=== PATIENT | female | born 1985 | race Caucasian/White ===

== ENCOUNTER 2021-03-02 11:11 | Inpatient (IN) ==
--- NOTE | 2021-03-01 09:34 | Anesthesiology Consultation ---
Date of Service March 01, 2021 Assessment & Plan (1) Encounter for pre-operative examination: - COVID screening: Per assessment on 03/01: Travel screen negative, no known COVID-19 positive contacts or current COVID-19 related symptoms. Patient vaccinated. Surgeon arranging preop COVID testing (02/28; DANELLE). Awaiting results. - Check test AM DOS Chart Review Chart Review: Acceptable Risk for Surgery and Patient NOT seen in Pre Admission Testing History Surgery Operation Date: 03/02/21 13:05 Proposed Procedures p L5-S1 Decompression and Fusion, Spinal Cord Monitoring - Jose Russ DO Height/Weight Height: 5 ft 9 in Weight: 138.799 kg Allergies Allergy/AdvReac Type Severity Reaction Status Date / Time amoxicillin Allergy Severe Anaphylaxis Verified 03/02/21 11:42 Penicillins Allergy Severe Anaphylaxis Verified 03/02/21 11:42 shellfish derived Allergy Severe Anaphylaxis Verified 03/02/21 11:42 Medications Home Medications Medication Instructions Recorded Confirmed Last Taken L norgest/E estradiol-E estrad 1 tab PO 01/29/21 03/02/21 03/01/21 23:00 0.15 mg-30 mcg (84)/10 mcg(7) tabs,3mos (Seasonique) acetaminophen 300 mg-codeine 30 mg 1 tab PO BID PRN 01/29/21 03/02/21 02/23/21 tablet nznztdq-dlbmmnhcitasr-atusnaxw 250 1 tab PO Q6H PRN 01/29/21 03/02/21 01/05/21 mg-250 mg-65 mg tablet (Excedrin Migraine) cholecalciferol (vitamin D3) 25 25 mcg PO 01/29/21 03/02/21 03/01/21 23:00 mcg (1,000 unit) tablet (Vitamin D3) levothyroxine 100 mcg tablet 100 mcg PO QAM 01/29/21 03/02/21 03/02/21 08:00 loratadine 10 mg tablet 10 mg PO QAM 01/29/21 03/02/21 03/01/21 magnesium 500 mg tablet 500 mg PO 01/29/21 03/02/21 03/01/21 23:00 methocarbamol 750 mg tablet 750 mg PO TID PRN 01/29/21 03/02/21 02/27/21 omega-3 fatty acids 1,000 mg PO 01/29/21 03/02/21 02/16/21 vitamin A 50,000 unit capsule 50,000 unit PO HS 01/29/21 03/02/21 03/01/21 23:00 vitamin B complex 1 cap PO HS 01/29/21 03/02/21 03/01/21 23:00 Active Medications Generic Name Dose Route Start Last Admin Trade Name Fanta PRN Reason Stop Dose Admin Acetaminophen 1,000 mg 03/02/21 06:00 03/02/21 11:45 Acetaminophen 500 Mg Tab PO 03/02/21 18:00 1,000 mg PREOP VASHTI Administration Celecoxib 200 mg 03/02/21 06:00 03/02/21 11:45 Celebrex 200 Mg Cap PO 03/02/21 18:00 200 mg PREOP VASHTI Administration Gabapentin 900 mg 03/02/21 06:00 03/02/21 11:45 Gabapentin 900 Mg Dose PO 03/02/21 18:00 900 mg PREOP VASHTI Administration Lactated Ringer's 1,000 mls @ 15 mls/hr 03/02/21 06:00 03/02/21 12:14 Lr IV 03/03/21 05:59 15 mls/hr .Q24H VASHTI Administration Past Medical History Medical History Bulging discs Chronic back pain Degenerative disc disease GERD (gastroesophageal reflux disease) Diet controlled Herniated lumbar intervertebral disc History of COVID-19 Dx 05/2020 > symptoms at time of headache, sinus burning, minor fatigue > resolved Hypothyroidism Migraine Morbid obesity Peripheral neuropathy b/l legs Retinitis pigmentosa b/l, follows with Dr. 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" Past Family History Family History Other No family history of adverse response to anesthesia Past Surgical History Surgical History H/O wisdom tooth extraction History of section S/P epidural steroid injection S/P unilateral salpingo-oophorectomy Left Social History Smoking Status: Former smoker tobacco type: cigarettes Do You Dip or Chew Tobacco: No Smoking End Date: 2013 Hx Alcohol Use: Yes Alcohol type: wine alcohol intake frequency: 0-2 drinks per day Hx Substance Use: No substance use type: does not use Physical Exam Vital Signs Last Vital Signs Temp 36 C L 03/02/21 11:47 Pulse 71 03/02/21 11:47 Resp 18 03/02/21 11:47 BP 116/83 03/02/21 11:47 Pulse Ox 98 03/02/21 11:47 Lab Results Anesthesia Preop Results Results Anesthesia Widget: WBC 10.29 K/uL (4.8-10.8) 02/05/21 Hgb 13.1 g/dL (12.0-16.0) 02/05/21 Hct 39.5 % (37-47) 02/05/21 Plt 299 K/uL (130-400) 02/05/21 Na 139 mmol/L (136-145) 02/05/21 K 4.1 mmol/L (3.5-5.1) 02/05/21 Cl 110 mmol/L (98-107) H 02/05/21 CO2 22 mmol/L (21-32) 02/05/21 BUN 21 mg/dl (7-18) H 02/05/21 Creat 1.12 mg/dl (0.6-1.2) 02/05/21 Glucose Level 129 mg/dl (70-99) H 02/05/21 PT 9.8 Seconds (9.0-12.0) 02/05/21 PTT 26.4 Seconds (21.0-31.0) 02/05/21 INR 1.0 (0.9-1.1) 02/05/21 POC Ur Test NEG (NEG) 03/02/21 Urine Color Dark Yellow 02/05/21 Urine Appearance Clear (Clear) 02/05/21 Urine pH 5.0 (4.5-7.5) 02/05/21 Urine Specific [place] 1.031 (1.000-1.030) H 02/05/21 Urine Protein Negative (Negative) 02/05/21 Urine Glucose (UA) Negative (Negative) 02/05/21 Urine Ketones Negative (Negative) 02/05/21 Urine Blood Trace (Negative) H 02/05/21 Urine Nitrite Negative (Negative) 02/05/21 Urine Bilirubin Negative (Negative) 02/05/21 Urine Urobilinogen Negative (Negative) 02/05/21 Urine Leukocyte Esterase Negative (Negative) 02/05/21 Urine WBC (Auto) 1-5 /hpf (0-5) 02/05/21 Urine RBC (Auto) 0-4 /hpf (0-4) 02/05/21 Urine Hyaline Casts (Auto) 0 /lpf (0-5) 02/05/21 Urine Epithelial Cells (Auto) 10-20 /lpf (0-5) H 02/05/21 Urine Bacteria (Auto) Negative (Negative) 02/05/21 SARS-CoV-2, RNA, NAAT NEGATIVE (NEGATIVE) 03/02/21 Blood Type A Negative 02/05/21 Antibody Screen NEGATIVE 02/05/21 Testing Laboratory Results 03/02/21 Unknown POC Ur Test NEG Electrocardiogram Date: 02/05/21 NSR at 82bpm. Rightward axis. Chest X-Ray Date: 02/05/21 Findings: + NAD
[~2021-03-02 11:11] MED LIST: ACETAMINOPHEN 500 MG TAB PO SCH; CLINDAMYCIN 600 MG/54 ML BAG IV SCH; CeleBREX 200 MG CAP PO SCH; GABAPENTIN 900 MG DOSE PO SCH; LR 15ML/HR IV SCH
[2021-03-02] MEDS ORDERED: MIDAZOLAM HCL 1 MG/ML 2ML VIAL ONE (11:26)
[2021-03-02] MEDS ORDERED: fentaNYL citrate 100 MCG/2 ML VIAL ONE (11:26)
[2021-03-02] MEDS ORDERED: HYDROmorphone INJ 2 MG/ML SYR/VIAL ONE (12:24)
--- NOTE | 2021-03-02 12:50 | History & Physical Bridge Note ---
Date of Service March 02, 2021 History & Physical Bridge Note I have examined the patient, reviewed the History & Physical and in the interval since the performance of the History & Physical I have noted the following changes of clinical significance: no changes noted
--- NOTE | 2021-03-02 12:51 | History & Physical Report ---
Date of Service March 02, 2021 Assessment & Plan (1) Lumbar disc herniation with radiculopathy: Plan: L5-S1 decompression fusion History of Present Illness Chief Complaint: Back and leg pain Primary Care Provider: Tremayne Rodney This is a 35-year-old female who presents with current persistent back and leg pain after failing course of nonoperative care is here for surgical intervention. Allergies Allergy/AdvReac Type Severity Reaction Status Date / Time amoxicillin Allergy Severe Anaphylaxis Verified 03/02/21 11:42 Penicillins Allergy Severe Anaphylaxis Verified 03/02/21 11:42 shellfish derived Allergy Severe Anaphylaxis Verified 03/02/21 11:42 Home Medications Medication Instructions Recorded Confirmed Type L norgest/E estradiol-E estrad 1 tab PO HS 01/29/21 03/02/21 History 0.15 mg-30 mcg (84)/10 mcg(7) tabs,3mos (Seasonique) acetaminophen 300 mg-codeine 30 mg 1 tab PO BID PRN 01/29/21 03/02/21 History tablet ypmraon-wrhqklvocjwjb-vpxycyfp 250 1 tab PO Q6H PRN 01/29/21 03/02/21 History mg-250 mg-65 mg tablet (Excedrin Migraine) cholecalciferol (vitamin D3) 25 25 mcg PO HS 01/29/21 03/02/21 History mcg (1,000 unit) tablet (Vitamin D3) levothyroxine 100 mcg tablet 100 mcg PO QAM 01/29/21 03/02/21 History loratadine 10 mg tablet 10 mg PO QAM 01/29/21 03/02/21 History magnesium 500 mg tablet 500 mg PO HS 01/29/21 03/02/21 History methocarbamol 750 mg tablet 750 mg PO TID PRN 01/29/21 03/02/21 History omega-3 fatty acids 1,000 mg PO HS 01/29/21 03/02/21 History vitamin A 50,000 unit capsule 50,000 unit PO HS 01/29/21 03/02/21 History vitamin B complex 1 cap PO HS 01/29/21 03/02/21 History Past Med/Surg History Medical History Bulging discs Chronic back pain Degenerative disc disease GERD (gastroesophageal reflux disease) Diet controlled Herniated lumbar intervertebral disc History of COVID-19 Dx 05/2020 > symptoms at time of headache, sinus burning, minor fatigue > resolved Hypothyroidism Migraine Morbid obesity Peripheral neuropathy b/l legs Retinitis pigmentosa b/l, follows with Dr. 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" Surgical History H/O wisdom tooth extraction History of section S/P epidural steroid injection S/P unilateral salpingo-oophorectomy Left Family History Other No family history of adverse response to anesthesia Social History Smoking Status: Former smoker Smoking End Date: 2013; Second Hand Exposure: No; Do You Dip or Chew Tobacco: No; Tobacco Cessation Education Requested by Patient: No Hx Alcohol Use: Yes Alcohol type: wine Hx Substance Use: No Preferred Language: Bel[place]an Communication Ability: Effective Water Quality Analyst Required: No Beliefs That Will Affect Care: None Current Living Situation: Family Other Information That Helps Us Care for You: No Feels Safe at Home: Yes Safety Concerns: Feels Safe At This Time Assistive Devices: Contacts and Glasses Physical Exam Physical Exam: Patient is alert and oriented Heart regular rate and rhythm Lungs clear to auscultation Results & Data ([facility]) Vital Signs (Past 12 Hours) Vital Signs Temp Pulse Resp BP Pulse Ox 03/02/21 11:47 36 C L 71 18 116/83 98
[2021-03-02] MEDS ORDERED: ATROPINE SULFATE 0.1 MG/ML 10ML SYR IV PRN (13:01)
[2021-03-02] MEDS ORDERED: ONDANSETRON INJ 2 MG/ML 2 ML VIAL IV PRN ×2 (13:01→17:29)
[2021-03-02] MEDS ORDERED: BUPIVACAINE 0.5 % 5 MG/1 ML MPF 30ML VIAL ONE (13:16)
[2021-03-02] MEDS ORDERED: EPINEPHrine INJ 1 MG/ML AMP ONE (13:16)
[2021-03-02] MEDS ORDERED: FLOSEAL HEMOSTATIC MATRIX 10ML TOP ONE (14:11)
--- NOTE | 2021-03-02 15:11 | Operative Report ---
Post Operative Report Pre & Post Diagnosis Operation Date: 03/02/21 13:05 Pre-Op Diagnosis: Spondylolisthesis L5-S1 with radiculopathy and herniated nucleus pulposus Morbid obesity Post-Op Diagnosis: Same I identified the patient and participated in the time-out.: Yes Procedure Operation Date: 03/02/21 13:05 Actual Procedures #1 lumbar compression with bilateral medial facetectomies and foraminotomies L4- 5 L5-S1. #2 posterior spinal fusion L5-S1. #3 placement posterior instrumentation L5-S1. #4 interbody fusion L5-S1. #5 placement peek cage 13 x 26 mm at L5-S1. #6 placement locally harvested morselized autograft in the posterior gutters. #7 placement of I factor combined with Vitoss in the interbody space and posterior lateral gutters. Surgeon Jose Russ, DO Credit Risk Management Director Ismael Michaels Estimated Blood Loss 50 Findings See Below The patient is 5 foot 9 weighing over 145 kg with a BMI in excess of 47. The patient's body habitus did contribute to significant technical difficulty req uiring her deepest retractors and longest instruments in order to perform her procedure. This had at least 50% increase to the operative time. Specimens None Indications This is a 35-year-old female presents above-mentioned diagnosis after failing course of nonoperative care she is here for the above-mentioned procedure. Description of Procedure Patient was met with identified informed consent obtained. Patient was then taken to the operative suite underwent ablation placed in a prone position the Marcel table top of Dereje frame. All bony prominences well-padded eyes inspected to ensure no external pressure placed upon the. This point the lumbar spine was prepped and draped in a sterile fashion. Sharp dissection with the assistance of Bovie cautery performed down to and exposing the lamina and transverse processes of L4-5 and the sacral ala bilaterally. Obvious bilateral pars defect identified. Then performed a complete laminectomy of L5 partial laminectomy L4 including bilateral medial facetectomies and foraminotomies addressing all neural compression and spinal stenosis. Pedicle screws were then placed in L5 and S1 bilaterally with assistance of fluoroscopy and the proper sized omer placed. By way of a transforaminal approach on the right complete discectomy of L5-S1 was performed endplates curetted to subcortical bleeding bone and a 13 x 26 mm peek cage filled with I factor tapped in position. The rods were then locked in final position bilaterally. The transverse processes of L5 and sacral ala burred to subcortical being bone. I factor combined with Vitoss and locally harvested morselized autograft was placed in the posterior gutters. 15 round MARIBEL drain inserted. Incision was then closed with 1 Vicryl the fascia 2-0 Vicryl subcutaneously and 4 Monocryl for final skin closure. Steri-Strips dressings placed. Patient will continue PACU stable condition. Please note spinal cord monitoring was utilized at the procedure no changes noted lastly Ismael Michaels was present at the entire procedure and found the patient positioning complex portions of the surgery and fascial closure. I attest to the content of the Intraoperative Record and any orders documented therein. Any exceptions are noted below.
--- NOTE | 2021-03-02 15:16 | Fluoroscopy Report ---
FL lumbar spine 2-3V CLINICAL HISTORY: L5-S1 COMPARISON STUDY: None. FLUOROSCOPY TIME: 21 seconds. FLUOROSCOPIC IMAGES: 2 FINDINGS: Fluoroscopy was provided during L5-S1 discectomy with interbody spacer placement. Posterior decompression is noted. There are bilateral pedicle screws at the L5 and S1 levels. IMPRESSION: Fluoroscopy provided during L5-S1 discectomy, posterior decompression and bilateral pedi del screw fusion. ACT 112: Negative or not required by law. Electronically signed by: Luis Bai M.D. 03/02/2021 3:15 PM
[2021-03-02] MEDS: HYDROmorphone INJ 1 MG/ML SYRINGE IV PRN ×4 (15:43→16:03)
[2021-03-02] MEDS ORDERED: LIDOCAINE 2% 2 ML VIAL/AMP(20MG/ML) INFIL ONE (15:45)
[2021-03-02] MEDS ORDERED: ONDANSETRON INJ 2 MG/ML 2 ML VIAL ONE (15:45)
[2021-03-02] MEDS ORDERED: GLYCOPYRROLATE 0.2 MG/ML VIAL ONE (15:45)
[2021-03-02] MEDS ORDERED: DEXAMETHASONE SOD INJ 4 MG/ML VIAL ONE (15:45)
[2021-03-02] MEDS ORDERED: LARYING-O-JET KIT (LTA) ONE (15:45)
[2021-03-02] MEDS ORDERED: ROCURONIUM BROMIDE 10 MG/ML 5 ML VIAL IV ONE (15:45)
[2021-03-02] MEDS ORDERED: NEOSTIGMINE METHYLSULFATE 1 MG/ML 10ML VIAL ONE (15:45)
[2021-03-02] MEDS ORDERED: PROPOFOL IV EMULSION 10 MG/ML 20 ML VIAL IV ONE (15:45)
--- NOTE | 2021-03-02 16:14 | Anesthesiology Progress Note ---
Date of Service March 02, 2021 Anesthesia Post Procedure Vital Signs Vital Signs: Temp Pulse Pulse Resp BP Pulse Ox 03/02/21 16:05 69 12 139/70 98 03/02/21 15:55 71 13 133/80 100 03/02/21 15:45 80 17 146/92 H 100 03/02/21 15:35 36.1 C L 105 H 21 107/92 99 03/02/21 11:47 36 C L 71 18 116/83 98 Pain Intensity Back: Pain Intensity: 2 Transfer of Care Handoff Completed per policy Notes Mental Status: alert / awake / arousable Patient Amnestic to Procedure: Yes Nausea / Vomiting: adequately controlled Pain: adequately controlled Airway Patency, RR, SpO2: stable & adequate BP & HR: stable & adequate Hydration State: stable & adequate Anesthetic Complications: no major complications apparent and Pt Satisfied with anesthetic care
[2021-03-02] MEDS ORDERED: NALOXONE HCL 0.4 MG/1 ML VIAL/CARP IV PRN (17:29)
[2021-03-02] MEDS ORDERED: HYDROmorphone INJ 0.5 MG/0.5 ML SYR IV PRN (17:29)
[2021-03-02] MEDS ORDERED: LORazepam 0.5 MG/1 ML VIAL IV PRN (17:29)
[2021-03-02] MEDS ORDERED: HYDROmorphone INJ 1 MG/ML SYRINGE IV PRN (17:29)
[2021-03-02] MEDS ORDERED: MAGNESIUM HYDROXIDE SUSP 30 ML UDC PO PRN (17:29)
[2021-03-02] MEDS ORDERED: DO NOT ADMINISTER FLU VACCINE PRN (17:29)
[2021-03-02] MEDS ORDERED: DO NOT ADMINISTER PNEUMOCOCCAL VACCINE PRN (17:29)
[2021-03-02] MEDS ORDERED: METOCLOPRAMIDE HCL INJ 5 MG/ML 2 ML VIAL IV PRN (17:29)
[2021-03-02] MEDS ORDERED: hydrOXYzine HCl 25 MG TAB PO PRN (17:29)
[2021-03-02] MEDS ORDERED: PROMETHAZINE HCL 12.5 MG in SODIUM CHLORIDE 0.9% 50 ML IV PRN (17:29)
[2021-03-02] MEDS ORDERED: SOD PHOSPHATE/SOD BIPHOSPHATE ENEMA 132 ML BTL PR PRN (17:29)
[2021-03-02] MEDS ORDERED: diphenhydrAMINE Capsule 25 MG CAP PO PRN (17:29)
[2021-03-02] MEDS ORDERED: bisacodyL 10 MG SUPP PR PRN (17:29)
[2021-03-02] MEDS ORDERED: ACETAMINOPHEN 1,000 MG/100 ML VIAL IV PRN (17:29)
[2021-03-02] MEDS ORDERED: METHOCARBAMOL 750 MG TABLET PO PRN (17:29)
[2021-03-02] MEDS ORDERED: LORazepam 0.5 MG TAB PO PRN (17:29)
[2021-03-02] MEDS ORDERED: FAMOTIDINE 20 MG TAB PO PRN (17:29)
[2021-03-02] MEDS ORDERED: ALUMINUM/MAGNESIUM SUSP 30 ML UDC PO PRN (17:29)
[2021-03-02] MEDS ORDERED: ONDANSETRON 4 MG OD TAB PO PRN (17:29)
--- NOTE | 2021-03-02 18:06 | Hospitalist Consultation ---
Date of Consultation March 02, 2021 Assessment & Plan (1) Lumbar disc herniation with radiculopathy: - Pain management, bowel regimen and DVT ppx per the primary team - PT/OT consults, pt is planning on outpatient therapy - Follow am CBC to monitor for acute blood loss, hgb 13.1 on 02/05/21. (2) Chronic back pain: - Hx of such, pain control, encourage ambulation, diet and exercise will be martinez to help supporting healing (3) GERD (gastroesophageal reflux disease): - Continue diet control - does not appear to be on antiacid (4) Hypothyroidism: - Cont levothyroxine 100 mcg daily (5) Morbid obesity: - BMI 47.2 - diet and exercise to be encouraged throughout hospital stay. DVT ppx: - teds, scds CODE: Full code Dispo: From home, likely to remain in the hospital x 1-2 days Thank you for involving us in the care of Ms. Rooney. If you have any questions or concerns please do not hesitate to call. At this time medicine will follow along. Supervising Physician Co-Signing Physician Notes Attending addendum The patient was seen and examined in medical floor She has had back injury about 4 years back following delivery She has been complaining of back pain off and on since then Status post lumbar decompression and fusion today by Dr. Russ Has been doing reasonably good On examination No apparent distress at rest Hemodynamically stable Chest-clear Heart-S1-S2, regular Abdomen-benign Extremities-negative for any edema Her labs, imaging studies noted Status post lumbar decompression fusion-management by primary team Medically otherwise stable Agree with assessment and plan as outlined above by Court Zuñiga History of Present Illness Reason for Consultation: Medical management Requesting Physician: Dr. Russ Attending Physician: Jose Russ DO History of Present Illness This is a 35 yo F with PMHx of chronic back pain, DD, morbid obesity with BMI of 47.2, hypothyroidism, migraine, and spondylolisthesis of L5-S1 with radiculopathy and herniated nucleus pulposus who presented for elective lumbar decompression with bilateral medial facetectomies and foraminotomies L4-S1 and fusion of with hardware placement by Dr. Russ on 03/02/21. Patient was seen and examined at bedside, and she is still quite sleepy, dozing on and off since coming up to the floor at 430 this afternoon, and has attempted crackers and sips of water due to continued nausea. Denies having severe back pain, currently rates it as a 4/10. She denies any numbness or tingling down into her lower extremities. Mina catheter is out and is planning on attempting to get up and walk to the bathroom with nursing staff shortly. She lives at home with her and her 4-year-old daughter. Patient reports that she feels guilty for not being home with her child currently, but "I know why I need to stay in the hospital tonight". She denies any other acute complaints. Allergies Allergy/AdvReac Type Severity Reaction Status Date / Time amoxicillin Allergy Severe Anaphylaxis Verified 03/02/21 11:42 Penicillins Allergy Severe Anaphylaxis Verified 03/02/21 11:42 shellfish derived Allergy Severe Anaphylaxis Verified 03/02/21 11:42 Home Medications Medication Instructions Recorded Confirmed Type L norgest/E estradiol-E estrad 1 tab PO HS 01/29/21 03/02/21 History 0.15 mg-30 mcg (84)/10 mcg(7) tabs,3mos (Seasonique) acetaminophen 300 mg-codeine 30 mg 1 tab PO BID PRN 01/29/21 03/02/21 History tablet cholecalciferol (vitamin D3) 25 25 mcg PO HS 01/29/21 03/02/21 History mcg (1,000 unit) tablet (Vitamin D3) levothyroxine 100 mcg tablet 100 mcg PO QAM 01/29/21 03/02/21 History loratadine 10 mg tablet 10 mg PO QAM 01/29/21 03/02/21 History magnesium 500 mg tablet 500 mg PO HS 01/29/21 03/02/21 History methocarbamol 750 mg tablet 750 mg PO TID PRN 01/29/21 03/02/21 History vitamin A 50,000 unit capsule 50,000 unit PO HS 01/29/21 03/02/21 History vitamin B complex 1 cap PO HS 01/29/21 03/02/21 History Patient History Medical History (Updated 03/02/21 @ 18:[address] Canas PA-C) Bulging discs Chronic back pain Degenerative disc disease GERD (gastroesophageal reflux disease) Diet controlled Herniated lumbar intervertebral disc History of COVID-19 Dx 05/2020 > symptoms at time of headache, sinus burning, minor fatigue > resolved Hypothyroidism Migraine Morbid obesity Peripheral neuropathy b/l legs Retinitis pigmentosa b/l, follows with Dr. 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" Surgical History H/O wisdom tooth extraction History of section S/P epidural steroid injection S/P unilateral salpingo-oophorectomy Left Family History Other No family history of adverse response to anesthesia Social History Smoking Status: Former smoker Smoking End Date: 2013; Second Hand Exposure: No; Do You Dip or Chew Tobacco: No; Tobacco Cessation Education Requested by Patient: No Hx Alcohol Use: Yes Alcohol type: wine Hx Substance Use: No Preferred Language: Tamazight Communication Ability: Effective Head Tennis Coach Required: No Beliefs That Will Affect Care: None Current Living Situation: Family Other Information That Helps Us Care for You: No Feels Safe at Home: Yes Safety Concerns: Feels Safe At This Time Assistive Devices: Glasses Review of Systems Review of Systems: Constitutional: No fever, sweats or chills Eyes: No diplopia, no worsening or blurred vision ENT: normal hearing, no trouble swallowing Respiratory: No cough, sputum, dyspnea at rest or on exertion Cardiovascular: No chest pain, tightness or palpitations Abdomen: No pain, nausea, vomiting, diarrhea or constipation, last BM was today. Back: Pain locally rated 4/10, otherwise as per HPI Musculoskeletal: No joint pain, calf pain, swelling Neurologic: No weakness, numbness/tingling, or balance problems Psychiatric: No anxiety or depression Skin: No rash or itch Physical Exam Physical Exam: General: awake, alert but appears tired, no apparent distress, morbidly obese with BMI 47.2 Head: Normocephalic, atraumatic ENT: PERRL, EOMI, no pharyngeal exudate, mucous membranes moist Chest: Clear to auscultation, on room air, no adventitious breath sounds Cardiac: Regular rate and rhythm, no murmur, no JVD, normal peripheral pulses, good capillary refill Abdominal: NABS x 4 quadrants, soft, nondistended, nontender to palpation, no rebound or guarding Back: Dressing C/D/I, MARIBEL drain in place Extremities: Normal inspection, no peripheral edema or erythema, calfs nontender to palpation, able to move lower extremities without difficulty, sensation intact. Psych: Depressed mood and flat and sad affect Neuro: AAO x 3, strength intact bilaterally and rated 5/5, no motor deficits, speech is clear, no peripheral sensory deficits Results & Data Results & Data ([facility]) Vital Signs (Past 12 Hours) Vital Signs Temp Pulse Pulse Resp BP Pulse Ox 03/02/21 17:45 36.4 C L 75 16 158/79 H 98 03/02/21 16:15 36.7 C 74 17 138/74 100 03/02/21 16:05 69 12 139/70 98 03/02/21 15:55 71 13 133/80 100 03/02/21 15:45 80 17 146/92 H 100 03/02/21 15:35 36.1 C L 105 H 21 107/92 99 03/02/21 11:47 36 C L 71 18 116/83 98
[2021-03-02] MEDS: LACTATED RINGER'S 1,000 ML IV SCH (18:46)
[2021-03-02] MEDS: KETOROLAC 30 MG/ML VIAL IV SCH ×2 (18:46→23:09)
[2021-03-02] MEDS ORDERED: NON-FORMULARY MEDICATION (Magnesium 500 mg Tablet) PO SCH (21:00)
[2021-03-02] MEDS: VITAMIN A 25,000 UNIT CAP PO SCH (21:21)
[2021-03-02] MEDS ORDERED: CLINDAMYCIN 600 MG in DEXTROSE 5% 50 ML IV ONE (22:00)
[2021-03-02] MEDS: VITAMIN B COMPLEX TAB PO SCH (23:03)
[2021-03-02] MEDS: CHOLECALCIFEROL 1,000 UNITS 25 MCG TAB PO SCH (23:03)
[2021-03-02] MEDS: LEVONORGESTREL PO SCH (23:04)
[2021-03-02] MEDS: ETHINYL ESTRADIOL PO SCH (23:04)
[2021-03-02] MEDS: DOCUSATE SODIUM/SENNA 50/8.6MG TAB PO SCH (23:08)
[2021-03-03] MEDS: LACTATED RINGER'S 1,000 ML IV SCH (01:05)
[2021-03-03] MEDS: LEVOTHYROXINE SODIUM 100 MCG TABLET PO SCH (05:36)
[2021-03-03] MEDS: POLYETHYLENE (MIRALAX) 17 GM PACK PO SCH ×3 (05:37→17:38)
[2021-03-03] MEDS: KETOROLAC 30 MG/ML VIAL IV SCH ×2 (05:37→11:15)
[2021-03-03 07:08] LABS: Basophils # (auto) 0.01 K/uL (0-0.2); Basophils % (auto) 0.1 %; Hematocrit (blood only) 37.1 % (37-47); Hemoglobin 12.4 g/dL (12.0-16.0); Immature Granulocytes # (auto) 0.04 K/uL (0.00-0.02); Immature Granulocytes % (auto) 0.2 %; Lymphocytes # (auto) 0.56 K/uL (1.2-3.4); Lymphocytes % (auto) 3.3 %; Mean Corpuscular Hemoglobin 30.8 pg (25-34); Mean Corpuscular Hgb Conc 33.4 g/dL (32-36); Mean Corpuscular Volume 92.1 fL (80-100); Mean Platelet Volume 11.1 fL (7.4-10.4); Monocytes # (auto) 0.84 K/uL (0.11-0.59); Monocytes % (auto) 4.9 %; Neutrophils # (auto) 15.77 K/uL (1.4-6.5); Neutrophils % (auto) 91.5 %; Platelet Count 268 K/uL (130-400); RDW Standard Deviation 44.2 fL (36.4-46.3); Red Blood Count 4.03 M/uL (4.2-5.4); White Blood Count 17.22 K/uL (4.8-10.8)
[2021-03-03 07:25] LABS: BUN Creatinine Ratio 12.6 (10-20); Calcium 8.8 mg/dl (8.5-10.1); Creatinine Clr Calc Pharmacy 116.5 ml/min; Est GFR (African American) 81.4 ml/min; Est GFR (Non-African American) 70.2 ml/min; Potassium 4.3 mmol/L (3.5-5.1)
--- NOTE | 2021-03-03 07:34 | Orthopedic Progress Note ---
Date of Service March 03, 2021 Assessment & Plan (1) Lumbar disc herniation with radiculopathy: Plan: Patient is doing well postoperative day #1. We will continue with GI DVT prophylaxis as well as mobilization. Her pain is well controlled at this point and she understands that she has to ask for pain medication she is having discomfort. She is likely be discharged in the next day or 2 depending on her progress. Admission and Anticipated Discharge Date Admission Date: March 02, 2021 Subjective Patient seen bedside in room 305. She states that she is doing quite well this morning. She is little to soreness in the back itself but nothing that is uncontrolled. She is not having any radicular complaints. She is not nauseous. She is tolerating p.o. intake without difficulties. She denies any other numbness, tingling, or paresthesias. Physical Exam Physical Exam: On exam she is alert and oriented. She is in no apparent distress. Her dressing is clean dry and intact. MARIBEL drain is holding suction is placed out 40 cc this past shift and 35 on the previous. Her calves are supple nontender. Her abdomen supple nontender. Strength and sensation are both intact. Results & Data ([facility]) Vital Signs (Past 12 Hours) Vital Signs Temp Pulse Resp BP Pulse Ox 03/03/21 07:14 36.8 C 71 16 135/78 96 03/03/21 02:12 36.9 C 70 16 138/78 98 03/02/21 22:37 36.6 C 81 16 137/78 94
[2021-03-03] MEDS: LORATADINE 10 MG TAB PO SCH (08:18)
[2021-03-03] MEDS ORDERED: COUGH DROP (SUGAR FREE) LOZ 24 LOZ/1 BOX BUCCAL ONE (09:09)
[2021-03-03] MEDS ORDERED: COUGH DROP (SUGAR FREE) LOZ 24 LOZ/1 BOX BUCCAL PRN (09:11)
[2021-03-03] MEDS: traMADol HCL 50 MG TABLET PO PRN ×3 (09:16→20:10)
--- NOTE | 2021-03-03 12:06 | Hospitalist Progress Note ---
Date of Service March 03, 2021 Assessment & Plan (1) Lumbar disc herniation with radiculopathy: (2) Chronic back pain: Plan: #1 lumbar compression with bilateral medial facetectomies and foraminotomies L4- 5 L5-S1. #2 posterior spinal fusion L5-S1. #3 placement posterior instrumentation L5-S1. #4 interbody fusion L5-S1. #5 placement peek cage 13 x 26 mm at L5-S1. #6 placement locally harvested morselized autograft in the posterior gutters. #7 placement of I factor combined with Vitoss in the interbody space and posterior lateral gutters POD #1 Pain is controlled PT/OT Pain management per primary surgical team Hb is 12.4 today (3) GERD (gastroesophageal reflux disease): (4) Hypothyroidism: Plan: Cont levothyroxine 100 mcg daily (5) Morbid obesity: Plan: BMI 47.2 Lifestyle modification for weight loss encouraged DVT ppx: - teds, scds CODE: Full code Admission and Anticipated Discharge Date Admission Date: March 02, 2021 Subjective Patient seen and examined this morning. Reports wound pain at surgical site. Denies any nausea or abdominal pain at this time. Yet to pass flatus or move bowels. Denies any other complaints Review of Systems Review of Systems: Other review of systems negative except as stated above Physical Exam Constitutional: + well hydrated and + obese; no acute distress Eyes: PERRL, conjunctivae normal, anicteric sclerae ENMT: external ear and nose normal, oropharynx normal Respiratory: normal respiratory effort, lungs clear to auscultation Cardiovascular: Rate/Rhythm: regular rate and regular rhythm Heart Sounds: normal S1 and normal S2 Gastrointestinal (Abdomen): normal bowel sounds, soft, nontender, no hepatosplenomegaly Musculoskeletal: Clean dressing over lower back surgical site with MARIBEL drain in situ with serosanguineous drainage Neurologic: PERRL, EOMI, accommodation nl, no face palsy, no dysarthria Psychiatric: A+Ox3, euthymic affect Results & Data Results & Data ([facility]) Vital Signs (Past 12 Hours) Vital Signs Temp Pulse Resp BP Pulse Ox 03/03/21 11:02 37.4 C 71 16 137/85 99 03/03/21 07:14 36.8 C 71 16 135/78 96 03/03/21 02:12 36.9 C 70 16 138/78 98 Laboratory Results Abnormal lab results 03/03/21 03/03/21 Range/Units 06:30 06:30 WBC 17.22 H (4.8-10.8) K/uL RBC 4.03 L (4.2-5.4) M/uL MPV 11.1 H (7.4-10.4) fL Neut # (Auto) 15.77 H (1.4-6.5) K/uL Lymph # (Auto) 0.56 L (1.2-3.4) K/uL [place] # (Auto) 0.84 H (0.11-0.59) K/uL Immature Gran # (Auto) 0.04 H (0.00-0.02) K/uL Chloride 111 H (98-107) mmol/L Glucose 129 H (70-99) mg/dl
[2021-03-03] MEDS: VITAMIN A 25,000 UNIT CAP PO SCH (20:48)
[2021-03-03] MEDS: ETHINYL ESTRADIOL PO SCH (20:50)
[2021-03-03] MEDS: LEVONORGESTREL PO SCH (20:50)
[2021-03-03] MEDS: VITAMIN B COMPLEX TAB PO SCH (20:50)
[2021-03-03] MEDS: CHOLECALCIFEROL 1,000 UNITS 25 MCG TAB PO SCH (20:51)
[2021-03-03] MEDS: DOCUSATE SODIUM/SENNA 50/8.6MG TAB PO SCH (20:54)
[2021-03-03] MEDS ORDERED: ETHINYL ESTRADIOL PO SCH (21:00)
[2021-03-03] MEDS ORDERED: LEVONORGESTREL PO SCH (21:00)
[2021-03-04] MEDS: oxyCODONE HCL IR 5 MG TAB (IMMEDIATE RELEASE) PO PRN ×3 (00:05→17:23)
[2021-03-04 05:24] LABS: Hematocrit (blood only) 35.6 % (37-47); Hemoglobin 11.5 g/dL (12.0-16.0); Mean Corpuscular Hemoglobin 29.9 pg (25-34); Mean Corpuscular Hgb Conc 32.3 g/dL (32-36); Mean Corpuscular Volume 92.7 fL (80-100); Mean Platelet Volume 11.1 fL (7.4-10.4); Platelet Count 211 K/uL (130-400); RDW Coefficient of Variation 13.5 % (11.5-14.5); RDW Standard Deviation 45.6 fL (36.4-46.3); Red Blood Count 3.84 M/uL (4.2-5.4); White Blood Count 9.03 K/uL (4.8-10.8)
[2021-03-04] MEDS: LEVOTHYROXINE SODIUM 100 MCG TABLET PO SCH (06:01)
--- NOTE | 2021-03-04 07:49 | Orthopedic Progress Note ---
Date of Service March 04, 2021 Assessment & Plan (1) Lumbar disc herniation with radiculopathy: Plan: Patient is stable postoperative day #2. She had significant increase in pain last night and required increased pain medication. Her MARIBEL drain is still placing a safe amount of drainage out we will keep her today and plan on discharging her home tomorrow. We will continue with GI DVT prophylaxis once pain control. We will see her in the morning and likely be able to discharge her to home. Admission and Anticipated Discharge Date Admission Date: March 02, 2021 Subjective Patient seen bedside in room 305. She had a difficult night. She had increased pain throughout the night. She had a hard time finding a comfortable spot. She had to get up and walk for comfort and had to use breakthrough pain medication. Most of pain is in the buttock and into the proximal portions of the thighs. Should nothing going down past the knee. No fevers or chills. Physical Exam Physical Exam: On exam she is alert and oriented. She is in no apparent distress. Her dressing is clean dry and intact. Her MARIBEL drain is in place as put out 45 cc last shift 25 on this. Her abdomen is supple nontender. Strength and sensation are both intact. Results & Data ([facility]) Vital Signs (Past 12 Hours) Vital Signs Temp Pulse Resp BP Pulse Ox 03/04/21 07:34 36.8 C 73 16 130/77 99 03/03/21 22:15 37.0 C 87 18 138/87 95
[2021-03-04] MEDS: ACETAMINOPHEN 500 MG TAB PO PRN ×2 (08:28→17:23)
[2021-03-04] MEDS: LORATADINE 10 MG TAB PO SCH (08:28)
--- NOTE | 2021-03-04 11:39 | Hospitalist Progress Note ---
Date of Service March 04, 2021 Assessment & Plan (1) Lumbar disc herniation with radiculopathy: (2) Chronic back pain: Plan: #1 lumbar compression with bilateral medial facetectomies and foraminotomies L4- 5 L5-S1. #2 posterior spinal fusion L5-S1. #3 placement posterior instrumentation L5-S1. #4 interbody fusion L5-S1. #5 placement peek cage 13 x 26 mm at L5-S1. #6 placement locally harvested morselized autograft in the posterior gutters. #7 placement of I factor combined with Vitoss in the interbody space and posterior lateral gutters POD #1 Pain is controlled PT/OT Pain management per primary surgical team Drop in Hb to 11.4. Likely due to procedure + dilutional from IVF (3) GERD (gastroesophageal reflux disease): (4) Hypothyroidism: Plan: Cont levothyroxine 100 mcg daily (5) Morbid obesity: Plan: BMI 47.2 Lifestyle modification for weight loss encouraged DVT ppx: - teds, scds CODE: Full code Admission and Anticipated Discharge Date Admission Date: March 02, 2021 Subjective Patient seen and examined this morning. Reports some pain at surgical site. Had some nausea earlier. Now resolved Has been passing flatus and moving bowels Denies any other complaints Review of Systems Review of Systems: Other review of systems negative except as stated above Physical Exam Constitutional: + well hydrated and + obese; no acute distress Eyes: PERRL, conjunctivae normal, anicteric sclerae ENMT: external ear and nose normal, oropharynx normal Respiratory: normal respiratory effort, lungs clear to auscultation Cardiovascular: Rate/Rhythm: regular rate and regular rhythm Heart Sounds: normal S1 and normal S2 Gastrointestinal (Abdomen): normal bowel sounds, soft, nontender, no hepatosplenomegaly Musculoskeletal: Clean dressing over surgical site with MARIBEL drain in situ Neurologic: PERRL, EOMI, accommodation nl, no face palsy, no dysarthria Psychiatric: A+Ox3, euthymic affect Results & Data Results & Data ([facility]) Vital Signs (Past 12 Hours) Vital Signs Temp Pulse Resp BP Pulse Ox 03/04/21 07:34 36.8 C 73 16 130/77 99 Laboratory Results Abnormal lab results 03/04/21 Range/Units 04:53 RBC 3.84 L (4.2-5.4) M/uL Hgb 11.5 L (12.0-16.0) g/dL Hct 35.6 L (37-47) % MPV 11.1 H (7.4-10.4) fL
[2021-03-04] MEDS ORDERED: ALUMINUM/MAGNESIUM SUSP 30 ML UDC PO PRN (15:17)
[2021-03-04] MEDS: ETHINYL ESTRADIOL PO SCH (20:42)
[2021-03-04] MEDS: VITAMIN A 25,000 UNIT CAP PO SCH (20:42)
[2021-03-04] MEDS: VITAMIN B COMPLEX TAB PO SCH (20:42)
[2021-03-04] MEDS: CHOLECALCIFEROL 1,000 UNITS 25 MCG TAB PO SCH (20:42)
[2021-03-04] MEDS: LEVONORGESTREL PO SCH (20:42)
[2021-03-04] MEDS: DOCUSATE SODIUM/SENNA 50/8.6MG TAB PO SCH (20:50)
[2021-03-05] MEDS: LEVOTHYROXINE SODIUM 100 MCG TABLET PO SCH (06:54)
[2021-03-05] MEDS: oxyCODONE HCL IR 5 MG TAB (IMMEDIATE RELEASE) PO PRN (08:22)
[2021-03-05] MEDS: LORATADINE 10 MG TAB PO SCH (08:22)
--- NOTE | 2021-03-05 09:16 | Discharge Summary ---
Date of Service March 05, 2021 Admission HPI Per Admitting Provider This is a 35-year-old female who presents with current persistent back and leg pain after failing course of nonoperative care is here for surgical intervention. Principal Diagnosis Lumbar spinal stenosis with radiculopathy Discharge Data Allergies Allergy/AdvReac Type Severity Reaction Status Date / Time amoxicillin Allergy Severe Anaphylaxis Verified 03/02/21 11:42 Penicillins Allergy Severe Anaphylaxis Verified 03/02/21 11:42 shellfish derived Allergy Severe Anaphylaxis Verified 03/02/21 11:42 Consultations 03/02/21 17:29 Consult Hospitalist Routine Procedures Performed Operation Date: 03/02/21 13:05 Actual Procedures p L5-S1 Decompression and Fusion, Spinal Cord Monitoring(Not Applicable) - Jose Russ DO Ordered Studies 03/02/21 13:05 FL lumbar spine 2-3V Routine Hospital Course (1) Lumbar disc herniation with radiculopathy: Patient with lumbar decompression fusion tolerated this well second orthopedic for postop labor postop and when she was up and ambulating Santos postop day #2 on postop day #3 pain was controlled MARIBEL drain decreasing appropriately. Excellent strength testing. Subsequent discharge home. Discharge orders and instructions from the chart for further review. Total Time Total Time Spent Total Time Spent (In Minutes): 20 minutes Discharge Plan Discharge Items Patient Disposition: Home - Self-Care Reason For Visit: Radiculopathy, Lumbar Region Discharge Diagnosis: Spinal Stenosis Activity: Per Instructions section Non-emergency contact: Surgeon Call non-emergency contact if: your temperature is above 101.5 and your wound has increased drainage Follow-up/Referrals: Tremayne Rodney DO [Primary Care Provider] - Diet: Regular Addtl Attending Provider Instructions: ACTIVITY RECOMMENDATIONS: SELF CARE INSTRUCTIONS AFTER THORACIC/LUMBAR FUSIONS 1. You may walk to your tolerance. It is good exercise for your legs and back. Expect some back and intermittent leg aches and pains. 2. You may perform "counter-top" level activities (make a sandwich, maggie with a project, etc.). 3. No bending or lifting of more than 10 pounds or back twisting of any nature (roll like a log when turning in bed). 4. You may ride in a car for 20-30 minutes at a time. No driving until after your first visit with your doctor. 5. Frequent changes of position and restricting sitting to 30 minutes at a time will help limit the amount of back spasms and stiffness you may experience. 6. You may discontinue the use of ambulatory aids (cane, crutches, etc.) once your strength and confidence allow. 7. You may lens inserter the shower and let water strike your incision when you arrive home at least once daily. Do not take a tub bath, sit in a hot tub or go into a swimming pool until after your first recheck in the office. SPECIAL CARE INSTRUCTIONS: VERY IMPORTANT TO READ AND REVIEW A. Your surgical incision has been closed with a cosmetic suture under the skin that will dissolve in about 6 weeks. In 14 days, you can use a pair of clean scissors and cut the suture that is left outside of the skin at the ends of your incision. 1. The small skin tapes can be removed 7 days after surgery if they have not fallen off by that point. 2. You may keep the wound open to air as much as possible to promote healing after post-op day number 5 unless told otherwise by your doctor. 3. If you think the wound looks like it is becoming infected (redness or worsening drainage) and/or you are experiencing fever, chill or worsening back pain and muscle spasms, contact the office so that we may evaluate you as soon as possible. B. Complications are uncommon, but please contact us if you have any signs or symptoms of: 1. wound infection (fever higher than 102.5 degrees F, redness, separation of wound, drainage, or increasing pain from the incision) 2. blood clots in legs (pain, swelling, redness and warmth in legs) 3. urinary tract infection (fever higher than 102.5 degrees F, burning upon urination or increased frequency of urination) 4. nerve problems (inability to walk on your toes or heels, numbness, loss of bowel or bladder control) 5. any other symptoms that concern you C. Please call the office at if you have any concerns or questions about your operation or recovery. D. No smoking! Smoking drastically decreases the chance of a solid fusion. E. Do not take any anti-inflammatory medications (Indocin, Advil, Motrin, Aspirin, Naprosyn, etc.) as these may inhibit the chance of a solid fusion. Tylenol is okay to take for pain. MANAGING PAIN AFTER SPINAL SURGERY 1. Narcotic medication is intended for short-term use and will be provided for surgical pain. Surgical pain usually lasts for a period of 4-6 weeks. Narcotic medication includes Percocet, Vicodin, Darvocet, Tylenol #3 or Lortab. 2. Longer-term pain is more appropriately treated with non-narcotic medication such as Tylenol ES. 3. Muscle spasm is not appropriately treated with narcotics. Muscle relaxers such as Soma, Flexeril or Skelaxin can be used along with Tylenol ES. 4. Remember that we all live with some "aches and pains". This is not unusual or uncommon after an injury or as we get older. a. Back pain is expected and may include muscle spasms for 4 to 6 weeks after surgery. The pain should gradually improve. If the pain worsens for no apparent reason, please contact the office. b. Intermittent leg pain may also be experienced and should not be concerned about unless it worsens for no apparent reason. If so, please contact the office. 5. We will provide appropriate medication within the normal guidelines of their prescribed use. We will also be very cautious and aware of potential abuse and extended duration of patients' medication needs. a. Pain medications are for your comfort and to assist with sleep and rest so that the tissue can heal. They are not provided in order to return to normal activity and should not be used through the day. To do so or worsening pain at night can result from ongoing tissue damage and d evelopment of tolerance to the prescribed medicine. 6. Please allow 2-3 days to process refills. Prescriptions will not be mailed but must be picked up at the office. FOLLOW UP VISIT: Keep your scheduled follow-up appointment. Any questions, please call the office at . Pending Studies at Discharge: No Stand-Alone Forms: My [employer], Smoking Cessation Medications and DC Order Prescriptions: New oxycodone 5 mg Tablet 5 - 10 mg PO Q4H PRN (Reason: pain (scale score 4-6)) Qty: 30 RF: 0 Continued magnesium 500 mg Tablet 500 mg PO HS RF: 0 vitamin A 50,000 unit Capsule 50,000 unit PO HS RF: 0 levothyroxine 100 mcg Tablet 100 mcg PO QAM RF: 0 loratadine 10 mg Tablet 10 mg PO QAM RF: 0 vitamin B complex Capsule 1 cap PO HS RF: 0 L norgest/e.estradiol-e.estrad [Seasonique] 0.15 mg-30 mcg (84)/10 mcg (7) Tablets,Dose Pack,3 Month 1 tab PO HS RF: 0 cholecalciferol (vitamin D3) [Vitamin D3] 25 mcg (1,000 unit) Tablet 25 mcg PO HS RF: 0 Discontinued acetaminophen-codeine [Tylenol-Codeine #3] 300-30 mg Tablet 1 tab PO BID PRN (Reason: Pain) RF: 0 methocarbamol 750 mg Tablet 750 mg PO TID PRN (Reason: muscle cramps) RF: 0 Discharge Orders: Discharge Order (Routine); Ordered 03/05/21 Ordered By: Jose Russ Admission Data Admit Date/Time: 03/02/21 15:15 Attending Provider: Jose Russ Admit Provider: Jose Russ Primary Care Provider: Tremayne Rodney Other Providers: Laura Benitez ; Jose Russ ; Lillie Rubio I.
--- NOTE | 2021-03-05 10:13 | Hospitalist Progress Note ---
Date of Service March 05, 2021 Assessment & Plan (1) Lumbar disc herniation with radiculopathy: (2) Chronic back pain: Plan: #1 lumbar compression with bilateral medial facetectomies and foraminotomies L4- 5 L5-S1. #2 posterior spinal fusion L5-S1. #3 placement posterior instrumentation L5-S1. #4 interbody fusion L5-S1. #5 placement peek cage 13 x 26 mm at L5-S1. #6 placement locally harvested morselized autograft in the posterior gutters. #7 placement of I factor combined with Vitoss in the interbody space and posterior lateral gutters POD #2 Pain is controlled Pain management per primary surgical team Drop in Hb to 11.4. Likely due to procedure + dilutional from IVF Stable for discharge. Remove MARIBEL drain prior to discharge (3) GERD (gastroesophageal reflux disease): (4) Hypothyroidism: Plan: Cont levothyroxine 100 mcg daily (5) Morbid obesity: Plan: BMI 47.2 Lifestyle modification for weight loss encouraged Admission and Anticipated Discharge Date Admission Date: March 02, 2021 Subjective Patient seen and examined this morning. Reports some pain at surgical site which is well controlled Denies any other complaints Review of Systems Review of Systems: Other review of systems negative except as stated above Physical Exam Constitutional: + well hydrated and + obese; no acute distress Eyes: PERRL, conjunctivae normal, anicteric sclerae ENMT: external ear and nose normal, oropharynx normal Respiratory: normal respiratory effort, lungs clear to auscultation Cardiovascular: Rate/Rhythm: regular rate and regular rhythm Heart Sounds: normal S1 and normal S2 Gastrointestinal (Abdomen): normal bowel sounds, soft, nontender, no hepatosplenomegaly Musculoskeletal: Clean dressing over surgical site with MARIBEL drain in situ Neurologic: PERRL, EOMI, accommodation nl, no face palsy, no dysarthria Psychiatric: A+Ox3, euthymic affect Results & Data Results & Data ([facility]) Vital Signs (Past 12 Hours) Vital Signs Temp Pulse Resp BP Pulse Ox 03/05/21 07:26 36.9 C 86 18 120/79 97 03/04/21 22:53 36.8 C 76 15 122/78 95
== END 2021-03-05 12:22 | disposition home or self-care (01) | DRG 454 ==
LOC: ASU 11:11 → SUATTDRO 15:15 → 3E 15:15